=== PATIENT | female | born 1995 | race Two or more races ===

== ENCOUNTER → 2024-08-26 | Outpatient (CLI) | payer BC, SELFPAY ==
--- NOTE | 2024-08-26 | XR_ITS ---
Examination: Bilateral wrists 6 views TECHNIQUE: AP oblique lateral each wrist total 6 views Exam date and time: August 26, 2024 1246 hours INDICATIONS: Bilateral wrist pain beginning 5 minutes ago. FINDINGS: No wrist fracture or dislocation bilaterally No erosive or other significant arthritic change involving either wrist Mild osteopenia No avascular necrosis IMPRESSION: No fracture or dislocation involving either wrist No erosive or other significant arthritic change involving either wrist
--- NOTE | 2024-08-26 | XR_ITS ---
Examination: Bilateral hands, 6 views. Technique: AP, Oblique, Lateral each hand total 6 views Date and time of exam: August 26, 2024 1240 hours INDICATIONS: Bilateral hand pain beginning 5 minutes ago. FINDINGS: Mild juxta-articular bone demineralization No fracture or dislocation involving either hand No erosive or other significant arthritic change involving either hand No cortical bone destruction No opaque foreign bodies IMPRESSION: Mild juxta-articular bone demineralization No fracture or dislocation involving either hand No erosive or other significant arthritic change involving either hand
--- NOTE | 2024-08-26 | XR_ITS ---
Exam: elbow bilateral, 6 views Technique: Elbow AP, oblique each elbow total 6 views Exam date and time: August 26, 2024 1240 hours INDICATIONS: Bilateral elbow pain beginning 5 minutes ago. FINDINGS: Mild osteopenia. No fracture or dislocation involving either elbow No elbow effusions No avascular necrosis No erosive or other significant arthritic change involving either elbow IMPRESSION: No erosive or other significant arthritic change involving either elbow.
== END | disposition home or self-care (01) ==
PROVIDERS: PCP Family Medicine
DX: M25.522 Pain in left elbow (principal); M25.521 Pain in right elbow; M25.532 Pain in left wrist; M25.531 Pain in right wrist; M25.842 Other specified joint disorders, left hand; M25.841 Other specified joint disorders, right hand
CPT/HCPCS: 73080; 73110; 73130

== ENCOUNTER → 2025-05-26 | Outpatient (CLI) | payer BC, SELFPAY ==
[2025-05-27 09:48] LABS: BVAG Candida Negative (Negative); Bacterial Vaginosis Markers Negative (Negative); Candida glabrata Negative (Negative); Candida krusei PCR Negative (Negative); Trichomonas Negative (Negative)
== END | disposition home or self-care (01) ==
LOC: SLDO 14:23
PROVIDERS: Referring Provider Physician Assistant Medical; Visit Provider Physician Assistant Medical
DX: B37.89 Other sites of candidiasis (principal); N76.0 Acute vaginitis; A59.01 Trichomonal vulvovaginitis
CPT/HCPCS: 81514

== ENCOUNTER → 2025-07-07 | Outpatient (CLI) | payer BC, SELFPAY ==
[2025-07-07 12:28] LABS: Basophils # (Auto) 0.0 Thou/mm3 (0.0-0.2); Basophils % (Auto) 0 % (0-2.5); Eosinophils # (Auto) 0.1 Thou/mm3 (0.0-0.5); Eosinophils % (Auto) 2 % (0-10); Hematocrit 35.5 % (36.0-46.0); Hemoglobin 12.3 g/dL (12.0-16.0); Immature Granulocytes Auto 0.05 Thou/mm3 (0.00-0.00); Lymphocytes # (Auto) 1.1 Thou/mm3 (1.0-4.8); Lymphocytes % (Auto) 20 % (10-50); Mean Corpuscular HGB Conc 34.6 g/dl (31.0-37.0); Mean Corpuscular Hemoglobin 31.8 pg (25.0-35.0); Mean Corpuscular Volume 92 fL (80-100); Monocytes # (Auto) 0.6 Thou/mm3 (0.0-0.8); Monocytes % (Auto) 10 % (0-12); Neutrophils # (Auto) 3.8 Thou/mm3 (1.8-7.7); Neutrophils % (Auto) 67 % (37-80); Nucleated Red Blood Cell # 0.00 Thou/mm3 (0.00-0.00); Nucleated Red Blood Cell % 0 /100 WBC (0); Platelet Count 222 Thou/mm3 (140-440); RDW Standard Deviation 41.2 fL (36.4-46.3); Red Blood Count 3.87 Miln/mm3 (4.00-5.20); White Blood Count 5.7 Thou/mm3 (3.6-11.0)
[2025-07-07 12:42] LABS: Glucose Estimated Average 91 mg/dL (80-131); Hemoglobin A1C 4.8 % Hgb (4.8-6.0)
[2025-07-07 13:22] LABS: Creatinine (Component) 0.6 mg/dL (0.6-1.3); Glucose 79 mg/dL (74-106); eGFR > 60 See Note
[2025-07-07 13:42] LABS: Beta HCG,Quantitative 8332 mIU/mL (<5.0)
[2025-07-07 14:11] LABS: Hepatitis B Surface Antigen Non Reactive (Non React); Rubella, IgG Antibody Reactive (Immune)
[2025-07-09 17:48] LABS: HCV RNA, PCR <15 NOT DETECTED IU/mL
[2025-07-10 06:21] LABS: HCV RNA, PCR Log IU <1.18 NOT DETECTED Log IU/mL; HIV Ag/Ab, 4th Gen NON-REACTIVE
== END | disposition home or self-care (01) ==
LOC: COPL 11:26
PROVIDERS: PCP Family Medicine; Referring Provider Physician Assistant Medical; Visit Provider Physician Assistant Medical
DX: Z34.82 Encounter for supervision of other normal pregnancy, second trimester (principal)
CPT/HCPCS: 36415; 82565; 82947; 83036; 84702; 85025; 86762; 86850; 86900; 86901; 87340; 87389; 87522

== ENCOUNTER → 2025-07-07 | Outpatient (CLI) | payer BC, SELFPAY ==
[2025-07-07 14:14] LABS: Collection Type, Urine Clean Catch
[2025-07-07 15:56] LABS: Bacteria,Urine Rare; Bilirubin,Urine Negative (Negative); Blood,Urine Negative (Negative); Clarity,Urine Clear (Clear/Hazy); Color,Urine Yellow (Lt Yel-Yel); Glucose, Urine Negative (Negative); Hyaline Casts,Urine < 1 /hpf (0-1); Ketones,Urine Negative (Negative); Leukocyte Esterase,Urine Negative (Negative); Nitrite,Urine Negative (Negative); PH,Urine 7.0 (5.0-7.0); Protein,Urine Negative (Neg - Trace); RBC,Urine 2 /hpf (0-3); Specific Gravity,Urine 1.025 (1.001-1.035); Squamous Epithelial Cell,Urine 36 /hpf (0-5); Urobilinogen,Urine Negative mg/dL (0.0-1.0); WBC,Urine 1 /hpf (0-5)
[2025-07-07 15:59] LABS: Amphetamine/Methamp Scrn,U Negative (Negative); Barbiturate Screen,Urine Negative (Negative); Benzodiazepines Screen,Urine Negative (Negative); Benzoylecgonine Screen, Ur Negative (Negative); Fentanyl Screen,Urine Negative (Negative); Opiate Screen,Urine Negative (Negative); THC Screen,Urine Negative (Negative)
== END | disposition home or self-care (01) ==
LOC: SLDO 14:00
PROVIDERS: Referring Provider Physician Assistant Medical; Visit Provider Physician Assistant Medical
DX: Z34.82 Encounter for supervision of other normal pregnancy, second trimester (principal)
CPT/HCPCS: 80307; 81001; 87086